=== PATIENT | female | born 1945 | race Caucasian/White ===

== ENCOUNTER → 2018-09-22 12:08 | Outpatient (CLI) | payer MEDICARE, OTHER, SELFPAY ==
[2018-09-22 13:38] LABS: Add Manual Diff / Slide Review NO; Basophils Absolute Auto 100 /uL (0-100); Basophils Percent Auto 0.9 % (0-2); Eosinophils Absolute Auto 100 /uL (0-450); Eosinophils Percent Auto 1.9 % (2-4); Hematocrit 34.7 % (36-46); Hemoglobin 11.6 g/dL (12.0-16.0); Lymphocytes Absolute Auto 1900 /uL (1100-4500); Lymphocytes Percent Auto 32.7 % (25-40); Mean Corpuscular HGB Conc 33.5 % (30-36); Mean Corpuscular Hemoglobin 31.8 PG (26-34); Monocytes Absolute Auto 400 /uL (0-900); Monocytes Percent Auto 6.6 % (3-14); Neutrophils Absolute Auto 3400 /uL (1500-7000); Neutrophils Percent Auto 57.9 % (50-75); Platelet Count 312 X10^3/uL (150-400); Red Blood Cell Count 3.65 X10^6/uL (4.0-5.2); Red Cell Distribution Width 13.7 % (11.6-14.8); White Blood Cell Count 5.9 X10^3/uL (4.5-11.0)
[2018-09-22 13:39] LABS: Alanine Aminotransferase 32 IU/L (9-52); Albumin 4.5 g/dL (3.5-5.0); Albumin Globulin Ratio 1.2 (1.0-2.8); Alkaline Phosphatase 52 U/L (38-126); Aspartate Aminotransferase 44 IU/L (14-36); BUN Creatinine Ratio 22.5 (6-22); Bilirubin Total 0.6 mg/dL (0.2-1.3); Blood Urea Nitrogen 18 mg/dL (7-17); Calcium 9.4 mg/dL (8.4-10.2); Carbon Dioxide 26 mmol/L (22-32); Chloride 103 mmol/L (98-107); Estimated Glomerular Filt Rate > 60.0 mL/min (>60); Globulin 3.7 g/dL (1.7-4.1); Glucose 112 mg/dL (80-110); HEMOLYSIS < 15 (0-50); Potassium 4.1 mmol/L (3.4-5.1); Sodium 139 mmol/L (137-145); Total Protein 8.2 g/dL (6.3-8.2)
[2018-09-22 13:56] LABS: Free T4, Direct Thyroxine 1.11 ng/dL (0.78-2.19)
[2018-09-22 14:10] LABS: Thyroid Stimulating Hormone 0.65 uIU/mL (0.47-4.68)
[2018-09-24 16:10] LABS: Triiodothyronine T3 Total 102 ng/dL (76-181)
== END ==
PROVIDERS: PCP Family Medicine; Visit Provider Physician Assistant Medical
DX: L29.8 Other pruritus (principal); L28.1 Prurigo nodularis; E03.8 Other specified hypothyroidism
CPT/HCPCS: 36415; 80053; 84439; 84443; 84480; 85025

== ENCOUNTER → 2020-12-13 09:54 | Outpatient (CLI) | payer MEDICARE, OTHER, SELFPAY ==
[2020-12-13 19:14] LABS: Add Manual Diff / Slide Review NO; Basophils Absolute Auto 100 /uL (0-100); Basophils Percent Auto 0.9 % (0-2); Eosinophils Absolute Auto 100 /uL (0-450); Eosinophils Percent Auto 1.5 % (2-4); Hematocrit 39.9 % (36-46); Hemoglobin 13.7 g/dL (12.0-16.0); Lymphocytes Absolute Auto 1100 /uL (1100-4500); Lymphocytes Percent Auto 20.4 % (25-40); Mean Corpuscular HGB Conc 34.2 % (30-36); Mean Corpuscular Hemoglobin 32.5 PG (26-34); Mean Corpuscular Volume 95.1 fL (80-100); Monocytes Absolute Auto 400 /uL (0-900); Monocytes Percent Auto 6.5 % (3-14); Neutrophils Absolute Auto 3900 /uL (1500-7000); Neutrophils Percent Auto 70.7 % (50-75); Platelet Count 278 X10^3/uL (150-400); Red Cell Distribution Width 14.3 % (11.6-14.8); White Blood Cell Count 5.5 X10^3/uL (4.5-11.0)
[2020-12-13 19:18] LABS: HEMOLYSIS < 15 (0-50); Iron 89 ug/dL (37-170)
[2020-12-13 19:28] LABS: Percent Iron Saturation 32 % (15-50); Total Iron Binding Capacity 280 ug/dL (265-497); Transferrin 235 mg/dL (206-381)
[2020-12-13 19:49] LABS: Ferritin 25 ng/mL (11-264)
== END ==
PROVIDERS: PCP Family Medicine; Visit Provider Family Medicine
DX: N85.8 Other specified noninflammatory disorders of uterus (principal); M25.512 Pain in left shoulder
CPT/HCPCS: 82728; 83540; 83550; 85025

== ENCOUNTER → 2021-01-07 09:11 | Outpatient (CLI) | payer MEDICARE, OTHER, SELFPAY ==
--- NOTE | 2021-01-07 09:16 | DI.RAD.S_ITS ---
PROCEDURE: FL SHOULDER INJECTION MR/CT LT INDICATIONS: Chronic left shoulder pain COMPARISON: None. TECHNIQUE: The indications, alternatives, benefits, risks, and complications of the procedure were explained to the patient. Written informed consent was obtained and placed in the chart. The shoulder was examined fluoroscopically and a site for needle placement chosen for entry into the glenohumeral joint from an anterior approach. The skin was prepped and draped in a sterile fashion, and 1% lidocaine infiltrated from skin down to joint capsule. A spinal needle was inserted into the glenohumeral joint, and a small amount of iodinated contrast media injected to confirm intra-articular placement of the needle tip. This was followed by approximately 12 mL dilute solution of a gadolinium containing MR contrast agent. The needle was removed and a dressing was applied. The patient was given postprocedural instructions and sent to the MR suite for MR imaging. FINDINGS: A single fluoroscopic spot image demonstrates intra-articular location of injected iodinated contrast. IMPRESSION: Successful fluoroscopically guided administration of dilute Gadolinium solution into the shoulder joint for MR arthrogram. Dictated by: Fabien Cao M.D. on 01/07/2021 at 13:30 Approved by: Fabien Cao M.D. on 01/07/2021 at 13:30
--- NOTE | 2021-01-07 09:16 | DI.MRI.S_ITS ---
PROCEDURE: MR SHOULDER LT W CON INDICATIONS: Chronic left shoulder pain TECHNIQUE: After the administration of 12 mL of dilute intra-articular Gadolinium contrast, oblique coronal T1 and T2 spin echo with fat saturation, oblique sagittal T1 spin echo with and without fat saturation, oblique sagittal T2 fast spin echo with fat saturation, axial T1 spin echo with fat saturation through the shoulder. COMPARISON: None. FINDINGS: Rotator cuff: High-grade partial thickness articular sided tear at the critical zone at the junction of the supraspinatus and infraspinatus tendons is seen measuring approximately 6 mm in the AP dimension as seen on sagittal pulse sequences. Supraspinatus tendinopathy is present. There is low-grade bursal surface fraying of the supraspinatus tendon. Teres minor appears intact. Subscapularis tendon appears grossly intact. No atrophy of the rotator cuff muscles although there is fatty infiltration of the infraspinatus. Bones and bursae: No bone marrow contusions or fractures. Severe hypertrophic acromioclavicular joint degeneration. Acromion demonstrates conventional anatomy, without an os acromiale. Moderate subacromial-subdeltoid bursitis. Capsule and soft tissues: Labrum: Minimal blunting of the posterior segment, without definite intrasubstance gadolinium signal intensity. Ill-defined fraying of the superior segment. This could be age appropriate. Biceps tendon: Long head of the biceps tendon intact. Rotator interval: Normal signal intensity. Coracohumeral ligament: Probably intact although degenerative signal change versus chronic low-grade sprain IMPRESSION: High-grade partial thickness articular sided tear of the critical zone of the rotator cuff as above. Moderate subacromial-subdeltoid bursitis Mild degenerative changes of the labrum as above. Dictated by: Fabien Cao M.D. on 01/07/2021 at 10:48 Approved by: Fabien Cao M.D. on 01/07/2021 at 10:57
== END ==
PROVIDERS: PCP Family Medicine; Referring Provider Orthopaedic Surgery; Visit Provider Orthopaedic Surgery
DX: M25.512 Pain in left shoulder (principal); M75.112 Incomplete rotator cuff tear or rupture of left shoulder, not specified as traumatic; M75.52 Bursitis of left shoulder; G89.29 Other chronic pain
CPT/HCPCS: 23350; 73222; 77002

== ENCOUNTER → 2021-01-28 12:28 | Outpatient (CLI) | payer MEDICARE, OTHER, SELFPAY ==
[2021-01-28 20:33] LABS: COVID19 - ORCAS (NP or Nasal) Negative (Negative)
== END ==
PROVIDERS: PCP Family Medicine; Visit Provider Family Medicine
DX: Z20.822 Contact with and (suspected) exposure to COVID-19 (principal)
CPT/HCPCS: U0003

== ENCOUNTER → 2021-08-20 08:26 | Outpatient (CLI) | payer MEDICARE, OTHER, SELFPAY ==
[2021-08-20 20:07] LABS: COVID19 - ORCAS (NP or Nasal) Negative (Negative)
== END ==
PROVIDERS: PCP Family Medicine; Visit Provider Family Medicine
DX: Z20.822 Contact with and (suspected) exposure to COVID-19 (principal)
CPT/HCPCS: C9803; U0003

== ENCOUNTER → 2021-11-13 08:22 | Outpatient (CLI) | payer MEDICARE, OTHER, SELFPAY ==
[2021-11-13 20:34] LABS: COVID19 - ORCAS (NP or Nasal) Negative (Negative)
== END ==
PROVIDERS: PCP Family Medicine; Visit Provider Physician Assistant
DX: J06.9 Acute upper respiratory infection, unspecified (principal)
CPT/HCPCS: U0003

== ENCOUNTER → 2021-12-13 10:32 | Outpatient (CLI) | payer MEDICARE, OTHER, SELFPAY | PROVIDERS: PCP Family Medicine; Referring Provider Family Medicine; Visit Provider Family Medicine | DX: Z12.31 Encounter for screening mammogram for malignant neoplasm of breast (principal); Z53.8 Procedure and treatment not carried out for other reasons ==